=== PATIENT | female | born 1985 | race Caucasian/White ===

== ENCOUNTER 2017-12-21 19:08 | Inpatient (IN) | payer OTHER ==
[2017-12-21 21:11] LABS: ADD UMIC YES; UR ASCORBIC ACID NEGATIVE (NEGATIVE); UR BACTERIA FEW /HPF (NONE SEEN); UR BILIRUBIN (Dip) NEGATIVE (NEGATIVE); UR BLOOD (Dip) 1+ mg/dL (NEGATIVE); UR CLARITY SLIGHTLY CLOUDY (CLEAR); UR COLOR YELLOW (YELLOW); UR GLUCOSE (Dip) NEGATIVE (NEGATIVE); UR KETONES (Dip) NEGATIVE (NEGATIVE); UR LEUKOCYTE ESTERASE (Dip) NEGATIVE Leu/ul (NEGATIVE); UR MUCUS FEW /HPF (NONE SEEN); UR NITRITE (Dip) NEGATIVE (NEGATIVE); UR RBC 6 /HPF (0-5); UR SPECIFIC GRAVITY (Dip) 1.019 (1.003-1.030); UR SQUAMOUS EPITHELIAL CELL FEW /HPF (FEW); UR TOTAL PROTEIN (Dip) NEGATIVE (NEGATIVE); UR UROBILINOGEN (Dip) NEGATIVE (NEGATIVE); UR WBC 1 /HPF (0-5)
[2017-12-21 22:34] LABS: ADD MAN DIFF? NO
[2017-12-21 22:49] LABS: WHITE BLOOD COUNT 10.4 10^3/ul (4.8-10.8)
[2017-12-21 22:49] LABS: BASOPHIL # 0.1 10^3/ul (0.0-0.1); BASOPHILS % 1.1 % (0.0-2.0); EOSINOPHILS # 0.3 10^3/ul (0.0-0.5); EOSINOPHILS % 2.5 % (0.0-7.0); HEMATOCRIT 37.2 % (37.0-47.0); HEMOGLOBIN 12.1 g/dl (12.0-16.0); LYMPHOCYTES # 3.8 10^3/ul (0.8-2.9); LYMPHOCYTES % 36.7 % (15.0-51.0); MEAN CORPUSCULAR HEMOGLOBIN 30.3 pg (29.0-33.0); MEAN CORPUSCULAR HGB CONC 32.5 g/dl (32.0-37.0); MEAN CORPUSCULAR VOLUME 93.2 fl (82.0-101.0); MEAN PLATELET VOLUME 9.9 fl (7.4-10.4); MONOCYTE # 0.7 10^3/ul (0.3-0.9); MONOCYTES % 6.8 % (0.0-11.0); NEUTROPHIL # 5.5 10^3/ul (1.6-7.5); NEUTROPHILS % 52.7 % (39.0-77.0); PLATELET COUNT 379 10^3/UL (140-415); RED BLOOD COUNT 3.99 10^6/ul (4.20-5.40); RED CELL DISTRIBUTION WIDTH 12.9 % (11.5-14.5)
[2017-12-21 23:07] LABS: ALANINE AMINOTRANSFERASE 55 IU/L (13-69); ALBUMIN/GLOBULIN RATIO 1.81; ALKALINE PHOSPHATASE 77 IU/L (42-121); ANION GAP 8 (5-13); ASPARTATE AMINO TRANSFERASE 36 IU/L (15-46); BLOOD UREA NITROGEN 16 mg/dl (7-20); CALCIUM 9.3 mg/dl (8.4-10.2); CARBON DIOXIDE 24 mmol/L (21-31); CHLORIDE 108 mmol/L (97-110); CREATININE 0.72 mg/dl (0.44-1.00); Estimated GFR > 60 mL/min (>60); GLUCOSE 87 mg/dl (70-220); LIPASE 115 U/L (23-300); POTASSIUM 4.1 mmol/L (3.5-5.1); SODIUM 140 mmol/L (135-144); TOTAL PROTEIN 6.2 g/dl (6.1-8.1)
[2017-12-21 23:10] LABS: INR 0.94; PROTIME 12.7 Sec (11.9-14.9)
[2017-12-21 23:11] LABS: PARTIAL THROMBOPLASTIN TIME 31.4 Sec (23.0-35.0)
[2017-12-21] MEDS: SOD CHLORIDE 0.9% 1,000 ML IV (23:44)
[2017-12-21] MEDS: ONDANSETRON 4 MG INJ IV (23:44)
[2017-12-22 01:01] LABS: FREE T3 3.96 pg/ml (2.77-5.27)
[2017-12-22 01:02] LABS: FREE T4 (FREE THYROXINE) 0.82 ng/dl (0.79-2.35)
[2017-12-22] MEDS ORDERED: ACETAMINOPHEN 325 MG TAB PO (02:00)
[2017-12-22] MEDS ORDERED: ACET/BUTAL/CAFF TAB PO (02:00)
[2017-12-22] MEDS ORDERED: NACL 0.9% 3 ML SYG IV (02:00)
[2017-12-22] MEDS ORDERED: ONDANSETRON 4 MG INJ IV (02:00)
[2017-12-22] MEDS: ACET/BUTAL/CAFF TAB PO (02:11)
[2017-12-22] MEDS ORDERED: ZONISAMIDE 100 MG CAP PO (09:00)
[2017-12-22] MEDS ORDERED: CHLORZOXAZONE 500 MG PO (09:00)
[2017-12-22] MEDS ORDERED: LAMOTRIGINE 100 MG TAB PO (09:00)
[2017-12-22] MEDS ORDERED: NON-FORMULARY/PATIENT OWN MED (Alprazolam* (Alprazolam* ER) 2 MG) PO (09:00)
[2017-12-22] MEDS ORDERED: DULOXETINE 30 MG CAP DR PO (09:00)
== END 2017-12-22 04:50 | disposition left against medical advice (07) | DRG 392 ==
LOC: MS1 22:55 → E/R 19:08
DX: R11.2 Nausea with vomiting, unspecified (principal); C95.90 Leukemia, unspecified not having achieved remission; F31.9 Bipolar disorder, unspecified; F43.10 Post-traumatic stress disorder, unspecified; F41.9 Anxiety disorder, unspecified; D47.3 Essential (hemorrhagic) thrombocythemia; F17.210 Nicotine dependence, cigarettes, uncomplicated; Z53.21 Procedure and treatment not carried out due to patient leaving prior to being seen by health care provider
CPT/HCPCS: 80053; 81001; 83690; 84439; 84443; 84481; 85025; 85610; 85730; 99285-25